=== PATIENT | female | born 1960 | race Caucasian/White ===

== ENCOUNTER 2022-03-31 23:05 | Outpatient (CLI) | payer OTHER, SELFPAY | END 2022-03-31 23:06 | disposition home or self-care (01) | LOC: AMB 04-07 03:56 | PROVIDERS: Visit Provider Family Medicine | DX: T68.XXXA Hypothermia, initial encounter (principal); X31.XXXA Exposure to excessive natural cold, initial encounter; Y93.K1 Activity, walking an animal ==